=== PATIENT | female | born 1990 | race Caucasian/White ===

== ENCOUNTER 2025-08-05 09:47 | Emergency (ER) | payer OTHER, SELFPAY ==
--- NOTE | 2025-08-05 | ECG_ITS ---
Test Reason : palpitations Blood Pressure : */* mmHG Vent. Rate : 75 BPM Atrial Rate : 75 BPM P-R Int : 116 ms QRS Dur : 70 ms QT Int : 404 ms P-R-T Axes : 30 68 27 degrees QTcB Int : 451 ms Normal sinus rhythm Septal infarct , age undetermined Abnormal ECG No previous ECGs available Referred By: Generic ED Physician Electronically Signed By: Danie Decker
[2025-08-05 09:59] VITALS: BP 118/63; PULSE 72; RESP 18; TEMP 36.8; O2SAT 100; BMI 25.6
--- NOTE | 2025-08-05 10:05 | ED.GENADULT ---
HPI - General Adult General Chief complaint: Arrhythmia/Palpitations Stated complaint: palpitations, dizzy Time Seen by Provider: 08/05/25 15:09 History of Present Illness ED Provider: dirk HPI narrative: 35-year-old female with no significant diagnosed medical history reporting high heart rates on her watch heart monitor up to 140. Family history of a fib; she's concerned about this. Some orthostatic symptoms over the past few days. Feels a discomfort in the chest not with exertion and generally a fatigue and with malaise. No co-op hemoptysis or fever appeared. No abdominal pain, nausea, vomiting, or diarrhea appeared. No previous diagnosed cardiac issue or arrhythmia appeared. Related Data Previous Rx's ?Medication ?Instructions ?Recorded metoprolol tartrate 25 mg tablet 12.5 mg (1/2 x 25 mg) PO BID 30 08/05/25 days #30 tabs Allergies Allergy/AdvReac Type Severity Reaction Status Date / Time No Known Allergies Allergy Verified 08/05/25 10:05 [facility] Social History Social History Alcohol intake: current Alcohol intake frequency: holidays/special occasions only Smoked in Last 30 Days: No Use of substances other than those prescribed or required for medical reasons: No Advance Directives: No Advance Directives Information Provided: No Do you have a plan to hurt others: No Plan Patient : No Physical Exam ED Exam Exam: EXAM: Gen: Alert, awake, well appearing, well hydrated. Head: Atraumatic Eyes: Anicteric, Normal conjunctiva. ENT: Moist mucosa, no pallor. Neck: Supple. Respiratory: Breathing comfortably, No distress.Clear to auscultation bilaterally, symmetric chest expansion, No wheeze, rales, ronchi. Cardiovascular: Regular rate and rhythm. No murmurs or rub. Well perfused periphery, warm extremities. No edema. Abdominal: Soft, no objective distension. No palpable masses or obvious organomegaly. No focal tenderness, no guarding, no rebound tenderness or other peritoneal findings. : No flank tenderness. Neuro: Alert. Gross movement of all extremities intact. Vital signs: See flowsheet Vital Signs: Vital Signs - 24 hr 08/05/25 09:59 08/05/25 15:13 08/05/25 15:18 Temperature 98.2 F 98.0 F Pulse Rate 72 70 68 Respiratory Rate 18 17 Blood Pressure 118/63 114/72 107/58 L Pulse Oximetry 100 100 Oxygen Delivery Method Room Air Room Air 08/05/25 15:21 08/05/25 15:21 Temperature Pulse Rate 69 95 Respiratory Rate Blood Pressure 109/61 122/68 Pulse Oximetry Oxygen Delivery Method BMI result Body Mass Index 25.6 Course Course Course Narrative: This is a Rapid Medical Exam performed in triage by Yolanda Hines PA-C. Full HPI, ROS and PE to be performed by primary ED provider. 35 yo F presenting to the ED c/o fatigue, malaise, palpitations & dizziness x4-5 days. admits to chest pressure. denies SOB PE: NAD, nontoxic appearing, ambulating w/steady gait Plan: EKG, labs, SARs Medical Decision Making Medical Decision Making MDM Narrative: 35F with orthostatic symptoms and rapid palpitations. Atypical chest discomfort. Clinically not orthostatic during my examination. Well perfused, not pale or anemic. Reassuring lab work. ECG sinus rhythm. Extensive telemetry monitoring during ED course without any arrhythmias. Differential Diagnosis Dehydration come electrolyte arrangement come orthostasis come a thyroid disorder come a arrhythmia come a vasovagal considered PE but unlikely with no risk factors, no resting tachycardia, or clinical signs of DVT or risks of DVT/PE considered ACS unlikely given the patient's age and symptomatology. Lab Data 08/05/25 10:26 08/05/25 10:26 Labs: Lab Results 08/05/25 08/05/25 Range/Units 10:26 15:30 WBC 5.2 (4.8-10.8) X10*3/uL RBC 3.79 L (4.20-5.50) X10*6/uL Hgb 10.5 L (12.0-16.0) g/dl Hct 32.3 L (37.0-47.0) % MCV 85.2 (80.0-98.0) fL MCH 27.7 (27.0-33.0) pg MCHC 32.5 (31.0-35.0) g/dl RDW 14.6 (11.0-16.0) % Plt Count 259 (160-400) X10*3/uL MPV 10.1 (9.4-12.3) fL Immature Gran % (Auto) 0.4 (0.0-0.4) % Neut % (Auto) 53.6 (45-73) % Lymph % (Auto) 35.6 (20-40) % [place] % (Auto) 7.3 (2-11) % Eos % (Auto) 2.5 (0-4) % Baso % (Auto) 0.6 (0-2) % Lymph # (Auto) 1.9 (1.2-4.9) X10*3/uL [place] # (Auto) 0.4 (0.1-1.2) X10*3/uL Eos # (Auto) 0.1 (0.0-0.4) X10*3/uL Baso # (Auto) 0.0 (0.0-0.2) X10*3/uL Abs Immat Gran (auto) 0.02 (0.00-0.03) X10*3/uL Absolute Neuts (auto) 2.8 (2.0-8.3) x10*3/uL Absolute Nucleated RBC 0.000 (0.0-0.012) X10*3/uL Nucleated RBC % (auto) 0.0 (0.0-0.2) /100WBC Sodium 138 (135-145) mmol/L Potassium 3.7 (3.3-5.1) mmol/L Chloride 109 H (96-108) mmol/L Carbon Dioxide 21 L (22-29) mmol/L Anion Gap 12 (12-20) BUN 14 (9-16) mg/dL Creatinine 0.80 (0.5-1.4) mg/dL Estim Creat Clear Calc 90.1 Estimated GFR > 60 Random Glucose 95 (60-115) mg/dL Calcium 9.2 (8.4-10.2) mg/dL Magnesium 2.0 (1.6-2.6) mg/dL Total Bilirubin 0.2 (0.0-1.0) mg/dL Direct Bilirubin < 0.2 (0.0-0.5) mg/dL AST 18 (5-31) U/L ALT 11 (0-31) U/L Alkaline Phosphatase 66 (39-117) U/L Troponin I High Sens < 2.7 (<3.5-17.0) ng/L Total Protein 7.3 (6.5-8.0) g/dL Albumin 4.7 (3.5-5.0) g/dL TSH 1.88 (0.32-4.0) uIU/mL Urine Test NEGATIVE (NEGATIVE) Influenza Type A (PCR) NEGATIVE (Negative) Influenza Type B (PCR) NEGATIVE (Negative) RSV RNA Qual (PCR) NEGATIVE (Negative) SARS-CoV-2 RNA (RT-PCR) NEGATIVE (Negative) Independent Interpretation I performed an independent interpretation of an: EKG (Sinus QTC <500 coming out as chemically changed.) and Rhythm Strip (No arrhythmia. ) Discharge Plan Discharge Clinical Impression: Palpitations Patient Disposition: Home, Self-Care Instructions: Heart Palpitations (DC) Additional Instructions: Today in the emergency department you were evaluated for palpitations not feeling herself and occasional lightheadedness. You had a normal examination and we monitored your heart for few hours without arrhythmia. Your EKG was normal and in a normal sinus rhythm. Your blood count showed a hemoglobin or blood count of 10.5 no signs of infection and normal thyroid testing and electrolytes We will prescribe low-dose of metoprolol a heart rate lowering medication you can try as we discussed if you feel depressed or it is limiting your exercise capacity we have other adverse effects just stop it. Continue with your pursuit of primary physician Prescriptions: New metoprolol tartrate 25 mg tablet 12.5 mg PO BID 30 Days Qty: 30 0RF Interventions: ED Discharge Assessment Last Done: 08/05/25 18:19 Discharge Date/Time: 08/05/25 18:27 Print Language: [place]
[2025-08-05 10:31] LABS: MANUAL DIFF FLAG NO
[2025-08-05 10:35] LABS: Hematocrit 32.3 % (37.0-47.0); Hemoglobin 10.5 g/dl (12.0-16.0); Imm Gran Abs Auto 0.02 X10*3/uL (0.00-0.03); Imm Gran Pct Auto 0.4 % (0.0-0.4); Lymphocytes Absolute Auto 1.9 X10*3/uL (1.2-4.9); Mean Corpuscular HGB Conc 32.5 g/dl (31.0-35.0); Mean Corpuscular Hemoglobin 27.7 pg (27.0-33.0); Mean Corpuscular Volume 85.2 fL (80.0-98.0); NRBC Abs Auto 0.000 X10*3/uL (0.0-0.012); NRBC Pct Auto 0.0 /100WBC (0.0-0.2); Platelet Count 259 X10*3/uL (160-400); Red Blood Count 3.79 X10*6/uL (4.20-5.50); White Blood Count 5.2 X10*3/uL (4.8-10.8)
[2025-08-05 10:56] LABS: Alanine Aminotransferase 11 U/L (0-31); Albumin Level 4.7 g/dL (3.5-5.0); Alkaline Phosphatase 66 U/L (39-117); Anion Gap 12 (12-20); Aspartate Amino Transferase 18 U/L (5-31); Blood Urea Nitrogen 14 mg/dL (9-16); Calcium 9.2 mg/dL (8.4-10.2); Carbon Dioxide 21 mmol/L (22-29); Chloride 109 mmol/L (96-108); Creatinine Clr Calc Pharmacy 90.1; Estimated Glomerular Filt Rate > 60; Magnesium 2.0 mg/dL (1.6-2.6); Potassium 3.7 mmol/L (3.3-5.1); Sodium 138 mmol/L (135-145); Total Protein 7.3 g/dL (6.5-8.0)
[2025-08-05 10:58] LABS: Troponin-I High Sensitivity < 2.7 ng/L (<3.5-17.0)
[2025-08-05 11:15] LABS: Resp Syncy Virus RNA Qual PCR NEGATIVE (Negative); SARS COV2 PCR INHOUSE NEGATIVE (Negative)
[2025-08-05 15:13] VITALS: BP 114/72; PULSE 70; RESP 17; TEMP 36.7; O2SAT 100
[2025-08-05 15:18] VITALS: BP 107/58; PULSE 68
[2025-08-05 15:21] VITALS: BP 109/61; BP 122/68; PULSE 69; PULSE 95
--- NOTE | 2025-08-05 15:21 | PC.NURSE ---
PAtient presents to ED c/o dizziness and palpitations Denies pain On label sewer = NSR VSS and up to date\ Orthostatic vitals performed = negative Patient providing urine sample at this time Plan of care on going
[2025-08-05 15:49] LABS: UPreg QC Valid YES
[2025-08-05 18:19] VITALS: BP 122/68; PULSE 95; RESP 18; TEMP 36.6; O2SAT 96
== END 2025-08-05 18:27 | disposition home or self-care (01) ==
PROVIDERS: Physician Assistant; Emergency Provider Emergency Medicine
DX: R00.2 Palpitations (principal); R42 Dizziness and giddiness; Z03.818 Encounter for observation for suspected exposure to other biological agents ruled out; R53.83 Other fatigue
CPT/HCPCS: 80048; 80076; 81025; 83735; 84443; 84484; 85025; 87637; 93005; 99283; 99285

== ENCOUNTER → 2025-08-05 10:18 | Outpatient (BNV) | payer OTHER, SELFPAY | PROVIDERS: Emergency Provider Emergency Medicine; Visit Provider Internal Medicine Cardiovascular Disease | DX: R94.31 Abnormal electrocardiogram [ECG] [EKG] (principal); R00.2 Palpitations | CPT/HCPCS: 93010 ==